=== PATIENT | female | born 1945 | race Caucasian/White ===

== ENCOUNTER 2019-03-13 13:07 | Emergency (ER) | payer MEDICARE ==
[~2019-03-13] VITALS: Ht 160 cm; Wt 74.1 kg
[~2019-03-13 13:07] MED LIST: DIFLUCAN 100MG100 MG PO; FLAGYL 250250 MG/TAB PO; FLAGYL500 MG PO; GARLIC SUPPLEM300 MG PO; MVI; NEXIUM 20MG20 MG PO; NORCO 325 MG-51 TAB PO; OMNICEF 300MG300 MG PO; PEN-VEE K500 MG PO; ZOFRAN 4MG T4 MG/TAB PO
[2019-03-13 13:12] VITALS: PULSE 89; TEMP 98.2
[2019-03-13] MEDS ORDERED: PERCOCET 325 MG1 TA2 PO (14:34)
[2019-03-13 15:05] VITALS: BP 176/80
== END 2019-03-13 15:06 | disposition home or self-care (01) ==
LOC: COL.ER 13:07
DX: S42.202A Unspecified fracture of upper end of left humerus, initial encounter for closed fracture (principal); W22.01XA Walked into wall, initial encounter; Y92.834 Zoological garden (Zoo) as the place of occurrence of the external cause; Y99.0 Civilian activity done for income or pay
CPT/HCPCS: Q4050

== ENCOUNTER 2021-02-13 08:36 | Observation (INO) | payer MEDICARE ==
[~2021-02-13] VITALS: Ht 160 cm; Wt 72.7 kg
[~2021-02-13 08:36] MED LIST changes: +PERCOCET 325 MG1 TA2 PO
[2021-02-13 09:09] LABS: BASO # 0.1 (0.0-0.2); BASO % 0.6 % (0.0-2.0); EOS % 0.1 % (0-4.0); GRAN # 7.3 (1.4-6.5); HEMATOCRIT 43.8 % (37.0-47.0); HEMOGLOBIN 14.5 g/dl (12.5-16.0); LYMPH # 1.6 (1.2-3.4); LYMPH % 16.9 % (20.0-51.0); MEAN CELL VOLUME 88 fl (80.0-100.0); MEAN CORPUSCULAR HEMOGLOBIN 29 pg (27.0-31.0); MEAN CORPUSCULAR HGB CONC 33 g/dl (33.0-37.0); MEAN PLATELET VOLUME 9.4 fl (7.4-10.4); MONO # 0.4 (0.1-0.6); MONO % 4.1 % (1.7-9.3); PLATELET COUNT 309 K/mm3 (130-400); RED BLOOD COUNT 4.98 M/mm3 (4.10-5.30); REDCELL DISTRIBUTION WIDTH-CV 13.4 % (11.5-14.5)
[2021-02-13 09:27] LABS: ALBUMIN 4.5 gm/dL (3.5-5.0); BILIRUBIN,TOTAL 0.4 mg/dL (0.0-1.0); C-REACTIVE PROTEIN 0.6 mg/dL (0.0-0.9); CALCIUM 9.7 mg/dL (8.4-10.2); CREATININE, serum 0.9 (0.52-1.25); POTASSIUM 4.4 mmol/L (3.4-5.0); TOTAL PROTEIN 8.4 gm/dL (6.4-8.2)
[2021-02-13 10:01] LABS: COLLECTION METHOD CLEAN CATCH
[2021-02-13 10:05] LABS: MUCOUS Present /lpf; PH 5 (5-8); SQUAMOUS EPITHELIAL 0-2 /hpf; URINE APPEARANCE Clear; URINE BACTERIA Occasional /hpf; URINE BILIRUBIN Negative (NEGATIVE); URINE BLOOD Negative (NEGATIVE); URINE COLOR Yellow; URINE GLUCOSE Negative (NEGATIVE); URINE KETONE Negative (NEGATIVE); URINE LEUKOCYTE ESTERASE Negative (NEGATIVE); URINE NITRATE Negative (NEGATIVE); URINE PROTEIN(semi-quant) Negative (NEGATIVE); URINE RBC 0-2 /hpf; URINE UROBILINOGEN Negative (NEGATIVE)
--- NOTE | 2021-02-13 14:32 | NUR ---
Patient to room via wheelchair from ER. Transfers self from wheelchair to bed. Gait steady. Alert and oriented x4. Denies pain, says that she occasionally will have some cramping in her abd. Discuss with the patient process for stool sample collection. Patient says that she thinks she is "cleaned out" at this time. Oriented to room.
[2021-02-13 15:08] VITALS: BP 147/68; PULSE 91; TEMP 98.2
--- NOTE | 2021-02-13 16:59 | NUR ---
Lying in bed with eyes open watching TV. No more stools, has passed gas. No pain at this time. Does not want to order clear liquid dinner. Only wants juice at this time, provided. Patient asks for assistance with making long distance call. Assisted patient at this time. Denies additional needs.
[2021-02-13 19:40] VITALS: BP 136/59; PULSE 84; TEMP 98.2
--- NOTE | 2021-02-13 20:00 | NUR ---
PATIENT WAS RECEIVED IN BED FAIR.DUE MEDS GIVEN.REPORTS OF ON AND OFF ABD PAIN BUT SAYS SHE DOES NOT WANT MEDICATION FOR THAT.HAS BLOODY STOOL.SPECIMEN WAS SENT TO LAB AWAITS RESULTS.NO OTHER NEEDS AT THIS TIME.
[2021-02-13 20:17] LABS: HEMATOCRIT 39.1 % (37.0-47.0); HEMOGLOBIN 13.1 g/dl (12.5-16.0)
[2021-02-13 23:00] VITALS: BP 113/57; PULSE 87; TEMP 98.2
[2021-02-14] VITALS (9 sets, daily range): BP systolic 124–146; BP diastolic 45–67; PULSE 75–102; TEMP 97.5–98.5
--- NOTE | 2021-02-14 05:11 | NUR ---
PATIENT HAS HAD A RESTFUL NIGHT ON O2 VIA NC SATTING ABOVE 90%.DUE MEDS GIVEN,PATIENT HAS REDUCED APPETITE.DENIES DIARRHEA.STOOL SAMPLE IS PENDING.DENIES PAIN.NO OTHER NEEDS AT THIS TIME.
--- NOTE | 2021-02-14 05:20 | NUR ---
PATIENT SLEPT WELL,BREATHING ON RA.ON IVFS ON GOOD PROGRESS.HAD TWO EPISODES OF SMALL BLOODY STOOLS.NO OTHER NEEDS AT THIS TIME.
[2021-02-14 06:06] LABS: BASO # 0.1 (0.0-0.2); BASO % 0.7 % (0.0-2.0); EOS # 0.2 (0.0-0.7); EOS % 1.6 % (0-4.0); GRAN # 5.7 (1.4-6.5); GRAN % 56.9 % (42.2-75.2); HEMATOCRIT 38.2 % (37.0-47.0); HEMOGLOBIN 12.5 g/dl (12.5-16.0); LYMPH # 3.4 (1.2-3.4); LYMPH % 34.2 % (20.0-51.0); MEAN CELL VOLUME 89 fl (80.0-100.0); MEAN CORPUSCULAR HEMOGLOBIN 29 pg (27.0-31.0); MEAN CORPUSCULAR HGB CONC 33 g/dl (33.0-37.0); MEAN PLATELET VOLUME 9.3 fl (7.4-10.4); MONO # 0.6 (0.1-0.6); MONO % 6.3 % (1.7-9.3); PLATELET COUNT 271 K/mm3 (130-400); RED BLOOD COUNT 4.31 M/mm3 (4.10-5.30); REDCELL DISTRIBUTION WIDTH-CV 13.6 % (11.5-14.5)
[2021-02-14 06:18] LABS: CREATININE, serum 0.94 (0.52-1.25); POTASSIUM 3.9 mmol/L (3.4-5.0)
--- NOTE | 2021-02-14 06:55 | NUR ---
Lying in bed with eyes closed. Opens eyes when name called out. Alert and oriented x4. Denies pain at this time in abd but says that when it does happen it is about a 6/10 and is crampy. Says that she had two episodes of bloody stools in the night. Denies nausea. Patient denies additional needs or concerns at this time.
--- NOTE | 2021-02-14 07:40 | NUR ---
Assessment completed. Telemetry on. Abdomen soft, non-distended. Bowel sounds x4 quadrants. Denies any pain at this time.
--- NOTE | 2021-02-14 09:27 | NUR ---
Application Security Engineer attended clinical rounds with the team. A friend was present. The patient gave persmission to continue. The patient's PCP is Dr. Kavon Shaver. The patient is debating if she would like to have a colonoscopy and would like for hospitalist to staff with her PCP.
--- NOTE | 2021-02-14 11:12 | NUR ---
Patient has decided to proceed with having colonoscopy tomorrow. Explain that we will update Dr. Mosley for orders and when we know time for procedure we will let her know. Discuss bowel prep that will be performed starting this evening and she will need to continue clear liquids. Explain that depending on when her procedure is scheduled for depends on when she will be NPO. Patient verbalizes understanding. Friend in room visiting with the patient. Denies additional needs. Dr. Mosley updated. Orders placed. Dr. Mosley says that he will contact surgery.
--- NOTE | 2021-02-14 12:54 | NUR ---
Consent reviewed with patient. All questions answered. Patient seemed hesitant about signing consent. Explain that if she would like to talk with Dr. Mosley more before signing the consent she did not have to sign until she talked with him in the morning. Patient says that she is good to sign and signs consent at this time. Friend remains in room with the patient. Explain that she is allowed clear liquids until midnight then she will be NPO. Discuss that the bowel prep will be started around 1700 tonight, patient wants lemon gatorade to drink it with. Denies additional needs at this time.
--- NOTE | 2021-02-14 15:45 | NUR ---
C[employer] Oven Patcher met with patient to discuss discharge planning. Patient's friend, Yesenia is at bedside. Patient lives [place] in [place] and sees Dr. Santana for primary care. Patient obtains medications from [facility] with no difficulties and does not use any DME. Patient is independent with ADLS. Patient does not have Advance Directives at this time but states she is in the process of completing DPOA-HC. Patient is not , does not have any adult children, and her parents are . When SW asked patient about siblings, patient states "they are not on the list". Discharge Plan: Home.
--- NOTE | 2021-02-14 16:57 | NUR ---
Miralax bowel prep started at this time. Patient will call when assistance is needed.
[2021-02-14 17:13] LABS: HEMATOCRIT 39.2 % (37.0-47.0); HEMOGLOBIN 13.2 g/dl (12.5-16.0)
[2021-02-15] VITALS (12 sets, daily range): BP systolic 109–146; BP diastolic 53–69; PULSE 72–80; TEMP 97.5–98.2
--- NOTE | 2021-02-15 06:30 | NUR ---
NO BLOODY STOOLS THROUGHOUT THE NIGHT. BOWEL PREP COMPLETE. PATIENT DENIED PAIN THROUGHOUT THE NIGHT. NO NEW ISSUES.
--- NOTE | 2021-02-15 07:44 | NUR ---
PATIENT LEFT FOR COLONOSCOPY PROCEDURE VIA CART. WILL WAIT FOR ARRIVAL BACK TO ROOM.
--- NOTE | 2021-02-15 08:50 | NUR ---
PATIENT ARRIVED BACK TO ROOM 309 VIA CART FROM PROCEDURE. POST-PROCEDURE VITALS STABLE. PATIENT TOLERATING PO. WILL CONTINUE TO MONITOR.
[2021-02-15] MEDS ORDERED: ASPIRIN E.C. 8181 MG PO (09:53)
--- NOTE | 2021-02-15 10:09 | NUR ---
Initial visit; Patient thanked Land Management Supervisor for looking in on her and offering God's blessings and Happy Resurrection Day. .
--- NOTE | 2021-02-15 11:30 | NUR ---
PATIENT POST-OP VSS AND COMPLETE. SHIFT ASSESSMENT COMPLETED BY THIS NURSE AND SN CHRISTINA. THIS NURSE REVIEWED AND AGREES WITH SN CHRISTINA DOCUMENTED SHIFT ASSESSMENT.
--- NOTE | 2021-02-15 14:33 | NUR ---
Primary nurse was assisted with 1345 patient care by [employer] student Coby Chirinos and [employer] instructor Missy Grove MSN, RN
--- NOTE | 2021-02-15 16:05 | NUR ---
PATIENT DISCHARGE INSTRUCTIONS REVIEWED WITH PATIENT. QUESTIONS SOUGHT AND ANSWERED. PATIENT GATHERING PERSONAL BELONGINGS FOR DISCHARGE.
--- NOTE | 2021-02-15 16:20 | NUR ---
PATIENT TAKEN TO PERSONAL VEHICLE VIA WHEELCHAIR. PATIENT DISCHARGED.
== END 2021-02-15 16:20 | disposition home or self-care (01) ==
LOC: COL.ER 08:36 → MEDICAL 10:28
PROVIDERS: Family Medicine; Physician Assistant; ADMIT Hospitalist
DX: K55.9 Vascular disorder of intestine, unspecified (principal); K64.0 First degree hemorrhoids; K76.0 Fatty (change of) liver, not elsewhere classified; Z88.1 Allergy status to other antibiotic agents; Z88.5 Allergy status to narcotic agent; Z85.828 Personal history of other malignant neoplasm of skin
CPT/HCPCS: G0378; J0696; J2405; J2704; J2765; J7030; J7120; Q9967